=== PATIENT | male | born 1995 | race African-American/Black ===

== ENCOUNTER 2022-02-05 10:59 | Emergency (ER) | payer OTHER ==
[2022-02-05 11:10] VITALS: BP 152/72
--- NOTE | 2022-02-05 12:27 | ED Physician Documentation ---
History of Present Illness - Stated complaint Stated Complaint: HEAD PX - Chief complaint Chief Complaint: Neuro - History obtained from History obtained from: Patient - Additonal information Additional information: This is a very nice 26-year-old male with a history of syphilis back in February who presented due to concerns from his PCP for frequent headaches. He was seen yesterday by me and we discussed considering outpatient lumbar puncture but due to her son miscommunication, the patient came back today to see if we wanted to do that procedure. The patient is not having any focal neuro changes, no confusion, no focal weakness, no change in mental status, no meningeal signs or fever. He did picking tech the medication that I prescribed yesterday but has not tried it yet. He currently does not have a headache. He does not have a fever, no cough or URI symptoms. Review of Systems Ten Systems: 10 systems reviewed and negative (Except as noted in HPI) PD PAST MEDICAL HISTORY - Past Medical History Past Medical History: Yes Other Past Medical History: Syphilis - Past Surgical History Past Surgical History: No - Present Medications Home Medications: Ambulatory Orders Medication Instructions Recorded Confirmed Butalb/Acetam/Caff 50/325/40 1 each PO Q4-6H PRN #12 tablet 02/04/22 [Fioricet] Rizatriptan Benzoate [Rizatriptan] 5 mg PO PRN PRN #10 tablet 02/04/22 - Allergies Allergies/Adverse Reactions: Allergies Allergy/AdvReac Type Severity Reaction Status Date / Time No Known Drug Allergies Allergy Verified 02/04/22 15:09 - Social History Does the pt smoke?: No Smoking Status: Never smoker Does the pt drink ETOH?: No Does the pt have substance abuse?: Yes - Immunizations Immunizations are current?: Yes PD ED PE NORMAL - Vitals Vital signs reviewed: Yes - General General: Alert and oriented X 3, No acute distress, Well developed/nourished - HEENT HEENT: Atraumatic, Moist mucous membranes - Neuro Neuro: Alert and oriented X 3, No motor deficit, No sensory deficit, Normal speech Eye Opening: Spontaneous Motor: Obeys Commands Verbal: Oriented GCS Score: 15 - Psych Psych: Normal mood, Normal affect Results - Vitals Vitals: Vital Signs - 24 hr 02/05/22 11:06 Temperature 36.7 C Heart Rate 99 Respiratory 14 Rate Blood Pressure 152/72 H O2 Saturation 99 Oxygen O2 Source Room air PD MEDICAL DECISION MAKING - ED course Complexity details: d/w patient ED course: 26-year-old Male who presented due to frequent headaches over the course of several months. 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 I discussed this with the ED attending and literature reviewed and no indication for an LP based on headaches only as headaches Are manageable, they are not the worst headache of his life, he has no other associated neuro changes, no confusion or alteration of mental status, no weakness, no meningeal signs, no fever. I did advise the patient to follow-up with neurology and keep a headache log to see if he can better manage his headaches. He was given medication yesterday which he will use as needed.I discussed return precautions if he had new neurologic changes. Departure - Departure Disposition: 01 Home, Self Care Clinical Impression: Migraine Qualifiers: Migraine type: without aura Status migrainosus presence: without status migrainosus Intractability: not intractable Qualified Code(s): G43.009 - Migraine without aura, not intractable, without status migrainosus Condition: Good Instructions: ED Headache Migraine Comments: As we discussed,, we do not think you need a lumbar puncture at this time but do recommend that you follow-up with your primary doctor and consider referral to neurology for chronic headaches. Please take the medication I prescribed yesterday, stay well-hydrated get plenty of rest and keep a headache log to identify any potential triggers. If you develop neurologic changes, return to the ER as we discussed.
== END 2022-02-05 12:30 | disposition home or self-care (01) ==
LOC: ED 10:59
DX: G43.009 Migraine without aura, not intractable, without status migrainosus (principal)
CPT/HCPCS: 99281